=== PATIENT | male | born 1970 | race Caucasian/White ===

== ENCOUNTER 2018-07-27 09:51 | Emergency (ER) | payer OTHER ==
[2018-07-27] MEDS ORDERED: TDAP ADULT 0.5 ML INJ (BOOSTRIX) IM ONE (09:59)
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
[2018-07-27] MEDS ORDERED: LET GEL TOPICAL 1 EA SYR TP ONE (11:14)
[2018-07-27 13:39] VITALS: BP 128/80
== END 2018-07-27 13:58 | disposition home or self-care (01) ==
DX: S02.40CA Maxillary fracture, right side, initial encounter for closed fracture (principal); V18.0XXA Pedal cycle driver injured in noncollision transport accident in nontraffic accident, initial encounter; Y93.55 Activity, bike riding; Y92.480 Sidewalk as the place of occurrence of the external cause; Z23 Encounter for immunization